=== PATIENT | female | born 1985 | race Caucasian/White ===

== ENCOUNTER 2016-11-24 11:32 | Inpatient (IN) | payer OTHER ==
[~2016-11-24] VITALS: Ht 165.1 cm; Wt 119.0 kg
[2016-11-24] MEDS ORDERED: OXYTOCIN 30U/ 0.9% NaCL 500ML 500 ML IV ONE (20:15)
[2016-11-24] MEDS ORDERED: OXYTOCIN 30U/ 0.9% NaCL 500ML 500 ML IV PRN (20:15)
[2016-11-24] MEDS ORDERED: ONDANSETRON 2MG/ML, 2ML IVPush PRN (20:30)
[2016-11-24] MEDS ORDERED: CALCIUM CARBONATE 500 MG TAB.CHEW PO PRN (20:30)
[2016-11-24] MEDS ORDERED: PLEASE ENTER HEIGHT AND WEIGHT MC SCH (20:30)
[2016-11-24] MEDS ORDERED: FENTANYL PF 100 MCG/2ML IV PRN (20:30)
[2016-11-24] MEDS ORDERED: TERBUTALINE 1 MG/ML, 1ML IVPush PRN (20:30)
[2016-11-24] MEDS ORDERED: MISOPROSTOL 25 MCG TABLET VG PRN (20:30)
[2016-11-24] MEDS ORDERED: FENTANYL PF 100 MCG/2ML IVPush PRN (20:30)
[2016-11-24] MEDS ORDERED: MISOPROSTOL 25 MCG TABLET ONE ×2 (20:44)
[2016-11-25] MEDS ORDERED: NEWBORN KIT ONE (07:28)
[2016-11-25] MEDS ORDERED: OXYTOCIN 30U/ 0.9% NaCL 500ML 500 ML ONE ×2 (07:45→23:40)
[2016-11-25 08:18] VITALS: BP 120/68
[2016-11-25] MEDS ORDERED: FENTANYL PF 100 MCG/2ML ONE (09:04)
[2016-11-25] MEDS: LACTATED RINGERS 1,000 ML IV SCH ×4 (10:00→19:00)
[2016-11-25] MEDS ORDERED: FENTANYL/BUPIV./NS/PF 250 ML EPIDCONT ONE ×2 (10:32→22:14)
[2016-11-25] MEDS ORDERED: LIDOCAINE/PF 1.5%-EPI 1:200K, 30ML ONE (10:33)
[2016-11-25] MEDS ORDERED: FENTANYL/BUPIV./NS/PF 250 ML EPIDCONT SCH (11:00)
[2016-11-25] MEDS ORDERED: LACTATED RINGERS 1,000 ML IVBOLUS PRN (11:00)
[2016-11-25] MEDS ORDERED: BUPIVACAINE/PF 0.25% ONE (11:35)
[2016-11-25] MEDS: D5%-LACTATED RINGERS 1,000 ML IV SCH ×2 (15:15→23:15)
[2016-11-25] MEDS ORDERED: TERBUTALINE 1 MG/ML, 1ML ONE (16:01)
[2016-11-25] MEDS ORDERED: flonase (18:02)
[2016-11-25] MEDS ORDERED: PREN1TAB60 PO (18:02)
[2016-11-25] MEDS ORDERED: DOCU-30 PO (18:02)
[2016-11-25] MEDS ORDERED: FAMO-79 PO (18:02)
[2016-11-25] MEDS ORDERED: MISOPROSTOL 200 MCG TABLET ONE (22:41)
[2016-11-25] MEDS ORDERED: LIDOCAINE 1%, 20ML ONE (22:41)
[2016-11-25] MEDS: OXYTOCIN 30U/ 0.9% NaCL 500ML 500 ML IV SCH (23:31)
[2016-11-25] MEDS ORDERED: OXYTOCIN 30U/ 0.9% NaCL 500ML 500 ML IV SCH (23:31)
[2016-11-26] MEDS ORDERED: OXYcodone/APAP 5/325MG TABLET PO PRN
[2016-11-26] MEDS ORDERED: MISOPROSTOL 200 MCG TABLET PR PRN
[2016-11-26] MEDS ORDERED: OXYcodone/APAP 5/325MG TABLET ONE (00:39)
[2016-11-26] MEDS: OXYcodone/APAP 5/325MG TABLET PO PRN ×4 (00:42→20:26)
[2016-11-26] MEDS: OXYTOCIN 30U/ 0.9% NaCL 500ML 500 ML IV SCH ×3 (00:57→03:49)
[2016-11-26] MEDS: LACTATED RINGERS 1,000 ML IV SCH ×2 (02:00→03:00)
[2016-11-26 02:41] VITALS: BP 130/81
[2016-11-26 04:57] VITALS: BP 115/70
[2016-11-26 05:50] VITALS: BP 112/64
[2016-11-26 07:15] VITALS: BP 100/67
[2016-11-26] MEDS: DOCUSATE 100 MG CAPSULE PO PRN ×2 (08:42→20:26)
[2016-11-26] MEDS: PRENATAL VIT/IRON/FA 1 EACH TABLET PO SCH (08:42)
[2016-11-26] MEDS ORDERED: IBUP-1222 PO (09:44)
[2016-11-26] MEDS ORDERED: OXYC-302 PO (09:44)
[2016-11-26] MEDS ORDERED: ACETAMINOPHEN 325 MG TABLET PO PRN (18:10)
[2016-11-26 20:30] VITALS: BP 123/66
[2016-11-27] MEDS: OXYcodone/APAP 5/325MG TABLET PO PRN ×2 (02:50→08:10)
[2016-11-27 07:45] VITALS: BP 127/82
[2016-11-27] MEDS: DOCUSATE 100 MG CAPSULE PO PRN (08:10)
[2016-11-27] MEDS: PRENATAL VIT/IRON/FA 1 EACH TABLET PO SCH (08:10)
[2016-11-27] MEDS ORDERED: OXYC-302 PO (12:08)
[2016-11-27] MEDS ORDERED: IBUP-1222 PO (12:09)
== END 2016-11-27 15:17 | disposition home or self-care (01) | DRG 774 ==
LOC: LDIP 19:54 → 2NW 11-26 02:18
PROVIDERS: ADMIT Obstetrics & Gynecology; ATTEND Obstetrics & Gynecology
PROC: 10E0XZZ Delivery of Products of Conception, External Approach (ICD-10-PCS; principal; 2016-11-25)
PROC: 0KQM0ZZ Repair Perineum Muscle, Open Approach (ICD-10-PCS; 2016-11-25)
PROC: 00HU33Z Insertion of Infusion Device into Spinal Canal, Percutaneous Approach (ICD-10-PCS; 2016-11-25)
PROC: 3E0R3CZ (ICD-10-PCS; 2016-11-25)
PROC: 10907ZC Drainage of Amniotic Fluid, Therapeutic from Products of Conception, Via Natural or Artificial Opening (ICD-10-PCS; 2016-11-25)
DX: O24.420 Gestational diabetes mellitus in childbirth, diet controlled (principal); O72.1 Other immediate postpartum hemorrhage; Z68.41 Body mass index [BMI] 40.0-44.9, adult; Z37.0 Single live birth; Z3A.39 39 weeks gestation of pregnancy; O99.284 Endocrine, nutritional and metabolic diseases complicating childbirth; O99.214 Obesity complicating childbirth; E66.9 Obesity, unspecified; E78.00 Pure hypercholesterolemia, unspecified; O99.844 Bariatric surgery status complicating childbirth; Z90.49 Acquired absence of other specified parts of digestive tract; Z80.41 Family history of malignant neoplasm of ovary; Z80.6 Family history of leukemia; Z86.72 Personal history of thrombophlebitis; Z88.6 Allergy status to analgesic agent; Z88.5 Allergy status to narcotic agent; O70.1 Second degree perineal laceration during delivery
CPT/HCPCS: 36415; 85025; 86850; 86900; J3010; J2590; J3105; J7120; J7121